=== PATIENT | male | born 1960 | race Hispanic/Latino ===

== ENCOUNTER → 2018-10-04 | Day surgery (SDC) | payer OTHER ==
[~2018-10-04] MED LIST: ASPIR 8181 MG PO; ATORVASTATIN CA40 MG PO; FENTANYL CITRATE/PF 100MCG/2 ML INJ ONE; MIDAZOLAM HCL 2 MG/2 ML VIAL ONE; PROPOFOL IV EMULSION 10 MG/ML 50 ML VIAL ONE
--- OUTSIDE RECORDS SUMMARY | 2018-10-04 07:02 | XMS REPORT | Summary of Care ---
Author Author [facility] Organization [facility] Address Unknown Phone Unavailable Encounter LUCIANA Wilkinson(MANUEL) [id number] Date(s): 07/30/15 - 07/30/15 [facility] [address] [place] [address]- Discharge Disposition: Home Attending Physician: Bernie Ross MD Vital Signs 1 2 3 Most recent to oldest [Reference Range]: 167.64 cm (07/30/15 11:06 AM) 167.64 cm (07/30/15 6:58 AM) Height 98.1 DegF (07/30/15 4:00 PM) 97.9 DegF (07/30/15 11:09 AM) 97.8 DegF (07/30/15 10:31 AM) Temperature Oral [96.4-99.1 DegF] 118/75 mmHg (07/30/15 4:00 PM) 122/81 mmHg (07/30/15 11:09 AM) 119/83 mmHg (07/30/15 10:31 AM) Blood Pressure [90-140/60-90 mmHg] 19 BRMIN (07/30/15 4:00 PM) 18 BRMIN (07/30/15 11:09 AM) 18 BRMIN (07/30/15 10:31 AM) Respiratory Rate [14-20 BRMIN] 66 bpm (07/30/15 4:00 PM) 65 bpm (07/30/15 11:09 AM) 64 bpm (07/30/15 10:31 AM) Peripheral Pulse Rate [60-100 bpm] 74.455 kg (07/30/15 11:06 AM) 68.182 kg (07/30/15 6:58 AM) Weight 26.49 m2 (07/30/15 11:06 AM) 24.26 m2 (07/30/15 6:58 AM) Body Mass Index Problem List Condition Effective Dates Status Health Status Informant Hyperlipidemia(Confi Active rmed) Allergies, Adverse Reactions, Alerts Substance Reaction Severity Status nka Active NKDA Active Medications aspirin 81 mg tablet, chewable 324 mg, 4 tab, Route: PO, Drug form: CHEWTAB, ONCE, Dosing Weight 68.182, kg, Pr iority: STAT, Start date: 07/30/15 7:15:00, Stop date: 07/30/15 7:15:00 Notes: Take with food. Start Date: 07/30/15 Stop Date: 07/30/15 Status: Completed aspirin 81 mg tablet, enteric coated 81 mg, 1 tab, Route: PO, Drug form: ECTAB, Daily, Dosing Weight 68.182, kg, Star t date: 07/31/15 9:00:00, Duration: 30 day, Stop date: 08/29/15 9:00:00 Notes: Do not crush or chew.(Same As: Ecotrin) Start Date: 07/31/15 Stop Date: 07/30/15 Status: Canceled aspirin 81 mg tablet, enteric coated 81 mg=1 tab, PO, Daily, # 30 tab, 0 Refill(s) Start Date: 07/30/15 Stop Date: 08/29/15 Status: Ordered Ativan 1 mg, 2 tab, Route: PO, Drug form: TAB, TID, Dosing Weight 74.455, kg, PRN Anxie ty, Start date: 07/30/15 12:17:00, Duration: 30 day, Stop date: 08/29/15 12:16:0 0 Notes: (Same as: Ativan) Start Date: 07/30/15 Stop Date: 07/30/15 Status: Discontinued atorvastatin 40 mg oral tablet 40 mg=1 tab, PO, Bedtime, # 30 tab, 0 Refill(s) Start Date: 07/30/15 Stop Date: 08/29/15 Status: Ordered diphenhydrAMINE 25 mg, 1 cap, Route: PO, Drug form: CAP, Bedtime, Dosing Weight 68.182, kg, PRN Insomnia, Start date: 07/30/15 10:01:00, Duration: 30 day, Stop date: 08/29/15 1 0:00:00 Notes: (Same as: Benadryl) Start Date: 07/30/15 Stop Date: 07/30/15 Status: Discontinued Lipitor 40 mg, 1 tab, Route: PO, Drug form: TAB, Bedtime, Dosing Weight 68.182, kg, Star t date: 07/30/15 21:00:00, Duration: 30 day, Stop date: 08/28/15 21:00:00 Notes: (Same as: Lipitor) Start Date: 07/30/15 Stop Date: 07/30/15 Status: Canceled Lipitor 40 mg, Route: PO, Drug form: TAB, Bedtime, Dosing Weight 74.455, kg, Start date: 07/30/15 21:00:00, Duration: 30 day, Stop date: 08/28/15 21:00:00 Start Date: 07/30/15 Stop Date: 07/30/15 Status: Deleted metoprolol tartrate 25 mg, 1 tab, Route: PO, Drug form: TAB, Q6H, Dosing Weight 68.182, kg, Start da te: 07/30/15 12:00:00, Duration: 30 day, Stop date: 08/29/15 6:00:00 Notes: (Same as: Lopressor) Start Date: 07/30/15 Stop Date: 07/30/15 Status: Discontinued morphine Sulfate 2 mg, 1 mL, Route: IVP, Drug form: INJ, Q15Min, Dosing Weight 68.182, kg, PRN Ch est Pain, Start date: 07/30/15 10:01:00, Duration: 2 doses or times, Stop date: Limited # of times Notes: (Same as:MORPhine Sulfate) Start Date: 07/30/15 Stop Date: 07/30/15 Status: Discontinued nitroglycerin SL Tab 0.4 mg, 1 tab, Route: SL, Drug form: TAB, Q5Min, Dosing Weight 68.182, kg, PRN C hest Pain, Start date: 07/30/15 10:01:00, Duration: 3 doses or times, Stop date: Limited # of times Notes: (Same as:Nitroquick, Nitrostat)"Do Not Crush" Sublingual tablet Start Date: 07/30/15 Stop Date: 07/30/15 Status: Discontinued ondansetron 4 mg, 1 tab, Route: PO, Drug form: TAB, Q8H, Dosing Weight 68.182, kg, PRN Nause a & Vomiting, Start date: 07/30/15 10:01:00, Duration: 30 day, Stop date: 08/29/15 10:00:00 Notes: (Same as: Zofran) Start Date: 07/30/15 Stop Date: 07/30/15 Status: Discontinued Saline Flush 0.9% 10 mL, Route: IVP, Drug Form: INJ, Dosing Weight 68.182, kg, PRN, PRN Line Flush , Start date: 07/30/15 7:15:00, Duration: 30 day, Stop date: 08/29/15 7:14:00 Notes: (Same as: BD Posiflush) Start Date: 07/30/15 Stop Date: 07/30/15 Status: Discontinued Saline Flush 0.9% 10 ml, Route: IVP, Drug Form: INJ, Dosing Weight 68.182, kg, Q12H, Start date: 09/29/14 21:00:00, Duration: 30 day, Stop date: 08/29/15 9:00:00 Notes: (Same as: BD Posiflush) Start Date: 07/30/15 Stop Date: 07/30/15 Status: Canceled Saline Flush 0.9% 10 ml, Route: IVP, Drug Form: INJ, Dosing Weight 68.182, kg, PRN, PRN Line Flush , Start date: 07/30/15 10:01:00, Duration: 30 day, Stop date: 08/29/15 10:00:00 Notes: (Same as: BD Posiflush) Start Date: 07/30/15 Stop Date: 07/30/15 Status: Discontinued Results ELECTROLYTES Most recent to 1 2 oldest [Reference Range]: Sodium Lvl [135-145 137 mEq/L mEq/L] (07/30/15 7:27 AM) Potassium Lvl 4.2 mEq/L [3.5-5.1 mEq/L] (07/30/15 7:27 AM) Chloride Lvl [95-109 103 mEq/L mEq/L] (07/30/15 7:27 AM) CO2 [24-32 mEq/L] 29 mEq/L (07/30/15 7:27 AM) AGAP [10.0-20.0 9.2 mEq/L mEq/L] *LOW* (07/30/15 7:27 AM) CHEM PANEL Most recent to 1 2 oldest [Reference Range]: Creatinine Lvl 0.8 mg/dL [0.5-1.4 mg/dL] (07/30/15 7:27 AM) eGFR 102 mL/min/1.73m2 1 *NA* (07/30/15 7: AM) BUN [7-22 mg/dL] 12 mg/dL (07/30/15 7:27 AM) B/C Ratio [6-25] 15 (07/30/15 7:27 AM) Glucose Lvl [70-99 125 mg/dL mg/dL] *HI* (07/30/15 AM) Total Protein 8.1 g/dL [6.4-8.4 g/dL] (07/30/15 7:27 AM) Albumin Lvl [3.5-5.0 4.0 g/dL g/dL] (07/30/15 7: AM) Globulin [2.0-4.0 4.1 g/dL g/dL] *HI* (07/30/15 7:27 AM) A/G Ratio [0.7-1.6] 1.0 (07/30/15: AM) Calcium Lvl 8.9 mg/dL [8.5-10.5 mg/dL] (07/30/15 7:27 AM) Phosphorus [2.5-4.5 2.5 mg/dL mg/dL] (07/30/15 7:27 AM) Magnesium Lvl 2.0 mg/dL [1.8-2.4 mg/dL] (07/30/15 7:27 AM) ALT [0-65 unit/L] 39 unit/L (07/30/15 7:27 AM) AST [0-37 unit/L] 21 unit/L (07/30/15 7:27 AM) Alk Phos [39-136 111 unit/L unit/L] (07/30/15 7:27 AM) Bili Total [0.2-1.3 0.8 mg/dL mg/dL] (07/30/15 7:27 AM) 1Result Comment: The eGFR is calculated using the CKD-EPI formula. In most young, healthy individuals the eGFR will be >90 mL/min/1.73m2. The eGFR declines with age. An eGFR of 60-89 may be normal in some populations, particularly the elderly, for whom the CKD-EPI formula has not been extensively validated. Use of the eGFR is not recommended in the following populations: Individuals with unstable creatinine concentrations, including patients and those with serious co-morbid conditions. Patients with extremes in muscle mass or diet. The data above are obtained from the National Kidney Disease Education Program ( NKDEP) which additionally recommends that when the eGFR is used in patients with extremes of body mass index for purposes of drug dosing, the eGFR should be mul tiplied by the estimated BMI. CARDIAC ENZYMES Most recent to 1 2 oldest [Reference Range]: Total CK [12-191 161 unit/L 201 unit/L unit/L] (07/30/15 10:45 AM) *HI* (07/30/15 7:27 AM) CK MB [0.5-3.6 3.2 ng/mL 2.8 ng/mL ng/mL] (07/30/15 10:45 AM) (07/30/15 7:27 AM) CK MB Index 1.4 [0.0-2.5] (07/30/15: AM) Troponin-I 0.19 ng/mL <0.02 ng/mL [0.00-0.40 ng/mL] (07/30/15 10:45 AM) (07/30/15 7:27 AM) HEMATOLOGY Most recent to 1 2 oldest [Reference Range]: WBC [3.7-10.4 K/CMM] 7.8 K/CMM (07/30/15 7:27 AM) RBC [4.70-6.10 5.32 M/CMM M/CMM] (07/30/15 7:27 AM) Hgb [14.0-18.0 g/dL] 15.9 g/dL (07/30/15 7:27 AM) Hct [42.0-54.0 %] 50.1 % (07/30/15 7:27 AM) MCV [80.0-94.0 fL] 94.2 fL *HI* (07/30/15 7:27 AM) MCH [27.0-31.0 pg] 29.9 pg (07/30/15:27 AM) MCHC [32.0-36.0 31.8 g/dL g/dL] *LOW* (07/30/15 AM) RDW [11.5-14.5 %] 12.9 % (07/30/15: AM) Platelet [133-450 218 K/CMM K/CMM] (07/30/15 AM) MPV [7.4-10.4 fL] 9.7 fL (07/30/15 AM) Segs [45.0-75.0 %] 50.1 % (07/30/15: AM) Lymphocytes 36.3 % [20.0-40.0 %] (07/30/15 AM) Monocytes [2.0-12.0 9.3 % %] (07/30/15: AM) Eosinophils [0.0-4.0 2.9 % %] (07/30/15: AM) Basophils [0.0-1.0 1.4 % %] *HI* (07/30/15 AM) Segs-Bands # 3.9 K/CMM [1.5-8.1 K/CMM] (07/30/15:27 AM) Lymphocytes # 2.8 K/CMM [1.0-5.5 K/CMM] (07/30/15:27 AM) Monocytes # [0.0-0.8 0.7 K/CMM K/CMM] (07/30/15:27 AM) Eosinophils # 0.2 K/CMM [0.0-0.5 K/CMM] (07/30/15 7:27 AM) Basophils # [0.0-0.2 0.1 K/CMM K/CMM] (07/30/15:27 AM) PT [12.0-14.7 12.1 seconds seconds] (07/30/15 7:27 AM) INR [0.85-1.17] 0.87 (07/30/15:27 AM) PTT [22.9-35.8 26.8 seconds seconds] (07/30/15 7:27 AM) Immunizations Vaccine Date Refusal Reason pneumococcal 23-valent vaccine 01/04/08 Procedures Procedure Date Related Diagnosis Body Site Stent placement Social History Social History Type Response Substance Abuse Use: None. Alcohol Current, Type Beer, Wine, Liquor. Frequency: Daily. 3 Drinks/Episode average. Last use: yesterday. Previous treatment: None. Smoking Status Never smoker; Exposure to Tobacco Smoke None; Cigarette Smoking Last 365 Days No; Reg Smoking Cessation Counseling No Assessment and Plan Extracted from: Title: Discharge Summary * Author: Lupillo Tamayo MD Date: 07/31/15 Discharge Information Date Admitted-07/30 Date Discharged- 07/31/2015 Admitting Physician- Vandana Discharging Physician- Dr Tamayo Consulting Physicians- Lizy Admitting Diagnosis- Chest Pain Discharging Diagnosis- Atyical Chest pain with a hx of CAD Dylipidemia HTN controlled Procedures- Disposition- home Discharge Condition - fair Discharge Medications- see discharge medication reconcitilation sheet Discharge Instructions / Follow up- Follow up with PCP in 1 week Discharge Exam: Lungs clear Heart ; S1 and S2 Abd : soft , non tender Time in Discharge Process- 32 minutes Discharge Plan Discharge Summary Plan Discharge Status: improved. Discharge instructions given: to patient. Discharge disposition: discharge to home. Prescriptions: written and given to patient. Extracted from: Title: Cardiology Author: Prasanna Medel MD Date: 07/30/15 INTERVENTIONAL CARDIOLOGY CONSULT BAILEE MEDEL MD, PHD, [facility], [facility] PHONE: [phone] FAX:[phone] Attending: Bernie Ross MDPhone: Service: Internal Medicine Code status: None Specified=FULL CODE Reason for Admission: CHEST PAIN Working DRG: None Documented Isolation: None Documented Consulting Physicians: Bernie Ross MDOffice: MSO: [id number]: Family Practice Prasanna Medel MDOffice: MSO: [id number]: Cardiology RFC: chest pain HPI: 55 yo M with relevant cardiovascular PMH of CAD, PTCA with IRENE - Cypher, GI bleed and further as listed in details below who presented to hospital with chest pain Pt experienced chest pain this morning when getting ready to work. pressure mid-left sided, radiating to arm and L jaw. Pain lasted approx. 30-45 min , mild intensity. Pt took 2 baby asa and pain slowly resolved. Associated with mild SOB. No cough,m no fever. Last episode of similar pain was ~ 10y ago prior to angioplasty. Since then pt was on meds. for approx. 5-6 years and then stopped due to lack of insurance coverage. Occasionally takes ASA 81mg. Works in [employer] what involves heavy lifting. Quit smoking 2y ago. REVIEW OF SYSTEMS: Constitutional: no fever, no chills HEENT: no blurry vision, no recent hearing changes, no dysphagia Respiratory: no cough, no hemoptysis, remaining as above Cardiovascular: as per HPI Gastrointestinal: no constipation, no diarrhea, no blood in the stool, Genitourinary: no blood in the urine, no pain with urination Skin: no hives, no itching Extremities: as per HPI Neurologic: no seizures, no recent speech / vision problems Rubén/Lymph: no easy bruising, no frequent infections Endocrine: no polyuria, no polydypsia Psychiatric: denies depression, no anxiety PHYSICAL EXAM: General: no acute distress, resting comfortably HEENT: atraumatic, anicteric sclerae, oral mucosa moist Neck: supple, Cardiovascular:RRR, no murmurs , carotid upstrokes brisk Lungs: normal resp. effort,CTAB Abdomen: soft, non-distended, no guarding, +BS Extremities: no clubbing, Skin: warm, no jaundice, Psych: AOx3, coherent, mood appropriate Neurologic: no focal deficits, moving all extremities Vitals and Temp: VitalsTmp(F)[id number] 07/30 11:[id number]/8118------ 07/30 10:[id number]--- 07/30 09:[id number]/005379--- 07/30 08:56----[id number]--- 07/30 06:[id number]--- 24 Hr Tmax: 98.2F (36.78c) at 07/30 09:42Vital Signs are the last 5 in the past 48 hours. DateWt(kg)Wt(lb)Ht(cm)Ht(in)Method 07/30 (initial) 68.18 [id number] 66.00Estimated Allergies: NKDA, nka FAMILY HISTORY: Mother: Type 2 diabetes mellitus PAST MEDICAL HISTORY: Hyperlipidemia CAD Stent placement Active Problems (1) Hyperlipidemia SOCIAL HISTORY: Alcohol Details: Current, Type Beer, Wine, Liquor. Frequency: Daily. 3 Drinks/Episode average. Last use: yesterday. Previous treatment: None. Tobacco Details: Use: Never smoker. Tobacco smoke exposure: None. Did the Patient Smoke Cigarettes Anytime During the Last 365 Days? No. Cessation Counseling Provided? No. Substance Abuse Details: Use: None. CURRENT MEDS: Medications (11) Active Scheduled Meds (4): 07/31/15 aspirin (aspirin 81 mg tablet, enteric coated) 81 mg PO Daily 07/30/15 atorvastatin (Lipitor) 40 mg PO Bedtime 07/30/15 metoprolol (metoprolol tartrate) 25 mg PO Q6H 07/30/15 sodium chloride (Saline Flush 0.9%) 10 ml IVP Q12H Unscheduled Meds: None PRN Meds (6): 07/30/15 diphenhydrAMINE 25 mg PO Bedtime 07/30/15 morphine Sulfate 2 mg IVP Q15Min 07/30/15 nitroglycerin (nitroglycerin SL Tab) 0.4 mg SL Q5Min 07/30/15 ondansetron 4 mg PO Q8H 07/30/15 sodium chloride (Saline Flush 0.9%) 10 mL IVP PRN 07/30/15 sodium chloride (Saline Flush 0.9%) 10 ml IVP PRN One Time Meds (1): 07/30/15 (Completed) aspirin (aspirin 81 mg tablet, chewable) 324 mg PO ONCE Continuous Infusions: None LABS: reviewed. Labs (Last four charted values) WBC 7.8(JUL 30) Hgb 15.9(JUL 30) Hct 50.1(JUL 30) Plt 218(JUL 30) Na 137(JUL 30) K 4.2(JUL 30) CO2 29(JUL 30) Cl 103(JUL 30) Cr 0.8(JUL 30) BUN 12(JUL 30) Glucose Random H 125(JUL 30) Mg 2.0(JUL 30) Phos 2.5(JUL 30) Ca 8.9(JUL 30) PT 12.1(JUL 30) INR 0.87(JUL 30) PTT 26.8(JUL 30) Troponin 0.19(JUL 30)<0.02(JUL 30) CK MB 3.2(JUL 30)2.8(JUL 30) Total CK 161(JUL 30)H 201(JUL 30) DIAGNOSTIC TESTS: TELEMETRY:no events. ECG: SR. LVH. Bradycardia. no ischemia. ECHO:none ASSESSMENT and PLAN: 55 yo patient with relevant cardiovascular PMH of CAD, PTCRCVA with 3 cypher stents, GI bleed - remote who presented to hospital with chest pain. Chest pain. susp. unstable angina. no ECG changes \\ BP controlled. cardiac markers neg. x 2 BRANDON risk ~ 2 COnt. ASA 81 mg Start statin : optimally pt should be on high potency : atorvast. 40 mg will proceed with stress test for further risk stratification Addendum 2005: PTCA LAD and RCA by Lizy, 3.5 x 18-mm CYPHER stent into the proximal portion of the left anterior descending lesion Prasanna 3.5 x 13 mm CYPHER into the distal portion of the lesion. John post dilated the distal stent up to 3.6-mm in diameter, on post dilated the overlap of the stent up to 3.7 mm 07/30/2015 proximal CYPHER stent up to 3.75-mm in diameter. 12:23 2.5 x 28-mm CYPHER in the RCA Addendum Stress test: by Lizy, overall positive chest pain and jaw pain during exercise. Prasanna Patient with excellent exercise capactity : 12.[address] changes at peak exercise with John quick resolution at recovery. MD on No evidence of significant wall motion abn. LV cavity decreases in size during exercise. 07/30/2015 Low risk stress test. 16:20 D/c meds: (pt without insurance, pls. prescribe meds. on 4$ list) ASA 81 mg daily Pravastatin 80 mg daily Metoprolol 25 mg BID Imdur 30 mg QD Follow up with me in 2 weeks.
--- OUTSIDE RECORDS SUMMARY | 2018-10-04 07:02 | XMS REPORT | Summary of Care ---
Author Author Yumiko Gannon Organization Unknown Address [facility] Phone Unavailable Care Team Providers Care Electrical Accessories Assembler Name Role Phone Yumiko Gannon Unavailable Unavailable PEPE DESHPANDE Unavailable Unavailable SHAY WALTON MAPEPE Unavailable Unavailable ALMAZ PORTER MA, PAUL Silva Unavailable Unavailable Unavailable Unavailable Functional Status Name Dates Details Functional status health issues are not documented Status: Name Dates Details Cognitive status health issues are not documented Status: Problems Name Dates Details Coronary artery disease involving mentasta coronary artery of mentasta heart without angina pectoris (414.01, I25.10) Status: Active BMI 26.0-26.9,adult (V85.22, Z68.26) Status: Active Mixed hyperlipidemia (272.2, E78.2) Status: Active Colon cancer screening (V76.51, Z12.11) Status: Active Medications Name Dates Details Aspirin 81 MG TABS Active Nitroglycerin 0.4 MG Sublingual Tablet Sublingual DISSOLVE 1 TABLET UNDER THE TONGUE NEEDED FOR CHEST PAIN * Quantity: 25 Refills: 0 PEPE DESHPANDE * Start : 15-Jun-2018 Active Atorvastatin Calcium 40 MG Oral Tablet TAKE 1 TABLET AT BEDTIME. * Quantity: 90 Refills: 0 PEPE DESHPANDE * Start : 16-Jun-2018 Active Allergies and Adverse Reactions Name Dates Details No Known Drug Allergies (Allergy) Status: Active Procedures Procedure Dates Details History of Cath Stent Placement Completed Immunization Name Dates Details Flublok Quadrivalent 0.5 ML Intramuscular Solution Prefilled Syringe Not Administered Td (adult), unspecified formulation on: Sep-2015 Pneumovax 23 25 MCG/0.5ML Injection Injectable Lot #: [id number] on: 15-Jun-2018 Family History Name Dates Details Family history of diabetes mellitus (V18.0, Z83.3) Status: Active Social History Name Dates Details - Status: Name Dates Details Former smoker Vital Signs Date Test Result Details No Known Vitals to report Results Date Description Value Details Results not documented Plan of Care Name Dates Details Planned Observations Planned Goals not documented Interventions Provided Follow-ups/Referrals* Cardiology Referral; To Be Done: 18 Jul 2018 * Gastroenterology Referral; To Be Done: 18 Jul 2018 Instructions Name Dates Details Instructions not documented Encounters Appointment; PEPE DAY P.A. Encounter Diagnosis: Problem not documented On: 15-Jun-2018 10:00
--- OUTSIDE RECORDS SUMMARY | 2018-10-04 07:02 | XMS REPORT | Continuity of Care Document ---
Author Author [facility] Interface Address Unknown Phone Unavailable Problems Problem Status Onset Date Classification Date Reported Comments Source CHEST PAIN Active 07/30/2015 [facility] Hyperlipidemia Active Problem 08/02/2015 [facility] Medications Medication Details Route Status Patient Instructions Ordering Provider Order Date Source Aspirin 81 MG Enteric Coated Tablet 81 mg, 1 tab, Route: PO, Drug form: ECTAB, Daily, Dosing Weight 68.182, kg, Start date: 07/31/15 9:00:00, Duration: 30 day, Stop date: 08/29/15 9:00:00Notes: Do not crush or chew. (Same As: Ecotrin) No Longer Active 07/31/2015 [facility] Lipitor 40 mg, 1 tab, Route: PO, Drug form: TAB, Bedtime, Dosing Weight 68.182, kg, Start date: 07/30/15 21:00:00, Duration: 30 day, Stop date: 08/28/15 21:00:00Notes: (Same as: Lipitor) Inactive 07/31/2015 [facility] Saline Flush 0.9% 10 ml, Route: IVP, Drug Form: INJ, Dosing Weight 68.182, kg, Q12H, Start date: 07/30/15 21:00:00, Duration: 30 day, Stop date: 08/29/15 9:00:00Notes: (Same as: BD Posiflush) Inactive 07/31/2015 [facility] Aspirin 81 MG Enteric Coated Tablet 81 mg=1 tab, PO, Daily, # 30 tab, 0 Refill(s) Active 07/31/2015 [facility] atorvastatin 40 mg oral tablet 40 mg=1 tab, PO, Bedtime, # 30 tab, 0 Refill(s) Active 07/31/2015 [facility] Ativan 1 mg, 2 tab, Route: PO, Drug form: TAB, TID, Dosing Weight 74.455, kg, PRN Anxiety, Start date: 07/30/15 12:17:00, Duration: 30 day, Stop date: 08/29/15 12:16:00Notes: (Same as: Ativan) Inactive 07/30/2015 [facility] metoprolol tartrate 25 mg, 1 tab, Route: PO, Drug form: TAB, Q6H, Dosing Weight 68.182, kg, Start date: 07/30/15 12:00:00, Duration: 30 day, Stop date: 08/29/15 6:00:00Notes: (Same as: Lopressor) Inactive 07/30/2015 [facility] Saline Flush 0.9% 10 ml, Route: IVP, Drug Form: INJ, Dosing Weight 68.182, kg, PRN, PRN Line Flush, Start date: 07/30/15 10:01:00, Duration: 30 day, Stop date: 08/29/15 10:00:00Notes: (Same as: BD Posiflush) Inactive 07/30/2015 [facility] Morphine 2 mg, 1 mL, Route: IVP, Drug form: INJ, Q15Min, Dosing Weight 68.182, kg, PRN Chest Pain, Start date: 07/30/15 10:01:00, Duration: 2 doses or times, Stop date: Limited # of timesNotes: (Same as:MORPh ine Sulfate) Inactive 07/30/2015 [facility] Nitroglycerin 0.4 mg, 1 tab, Route: SL, Drug form: TAB, Q5Min, Dosing Weight 68.182, kg, PRN Chest Pain, Start date: 07/30/15 10:01:00, Duration: 3 doses or times, Stop date: Limited # of timesNotes: (Same as:Nitroqu ick, Nitrostat) "Do Not Crush" Sublingual tablet Inactive 07/30/2015 [facility] Diphenhydramine 25 mg, 1 cap, Route: PO, Drug form: CAP, Bedtime, Dosing Weight 68.182, kg, PRN Insomnia, Start date: 07/30/15 10:01:00, Duration: 30 day, Stop date: 08/29/15 10:00:00Notes: (Same as: Benadryl) Inactive 07/30/2015 [facility] Ondansetron 4 mg, 1 tab, Route: PO, Drug form: TAB, Q8H, Dosing Weight 68.182, kg, PRN Nausea & Vomiting, Start date: 07/30/15 10:01:00, Duration: 30 day, Stop date: 08/29/15 10:00:00Notes: (Same as: Zofran) Inactive 07/30/2015 [facility] Aspirin 81 MG Chewable Tablet 324 mg, 4 tab, Route: PO, Drug form: CHEWTAB, ONCE, Dosing Weight 68.182, kg, Priority: STAT, Start date: 07/30/15 7:15:00, Stop date: 07/30/15 7:15:00Notes: Take with food. Inactive 07/30/2015 [facility] Saline Flush 0.9% 10 mL, Route: IVP, Drug Form: INJ, Dosing Weight 68.182, kg, PRN, PRN Line Flush, Start date: 07/30/15 7:15:00, Duration: 30 day, Stop date: 08/29/15 7:14:00Notes: (Same as: BD Posiflush) Inactive 07/30/2015 [facility] Allergies, Adverse Reactions, Alerts Substance Category Reaction Severity Reaction type Status Date Reported Comments Source nka Assertion Drug allergy Active [facility] Immunizations Immunization Date Given Site Status Last Updated Comments Source pneumococcal 23-valent vaccine 01/04/2008 Left Arm completed Yaron [facility] Results Order Name Results Value Reference Range Date Interpretation Comments Source CARDIAC ENZYMES Troponin-I 0.19 ng/mL 0.00 - 0.40 07/30/2015 [facility] CARDIAC ENZYMES CK MB 3.2 ng/mL 0.5 - 3.6 07/30/2015 [facility] CARDIAC ENZYMES Total CK 161 unit/L 12 - 191 07/30/2015 [facility] CARDIAC ENZYMES Troponin-I null 0.00 - 0.40 07/30/2015 [facility] CARDIAC ENZYMES Total CK 201 unit/L 12 - 191 07/30/2015 [facility] CARDIAC ENZYMES CK MB 2.8 ng/mL 0.5 - 3.6 07/30/2015 [facility] CARDIAC ENZYMES CK MB Index 1.4 0.0 - 2.5 07/30/2015 [facility] CHEM PANEL Magnesium Lvl 2.0 mg/dL 1.8 - 2.4 07/30/2015 [facility] CHEM PANEL Phosphorus 2.5 mg/dL 2.5 - 4.5 07/30/2015 [facility] CHEM PANEL A/G Ratio 1.0 0.7 - 1.6 07/30/2015 [facility] CHEM PANEL AGAP 9.2 meq/L 10.0 - 20.0 07/30/2015 [facility] CHEM PANEL B/C Ratio 15 6 - 25 07/30/2015 [facility] CHEM PANEL Globulin 4.1 g/dL 2.0 - 4.0 07/30/2015 [facility] CHEM PANEL BUN 12 mg/dL 7 - 22 07/30/2015 [facility] CHEM PANEL Glucose Lvl 125 mg/dL 70 - 99 07/30/2015 [facility] CHEM PANEL Sodium Lvl 137 meq/L 135 - 145 07/30/2015 [facility] CHEM PANEL Potassium Lvl 4.2 meq/L 3.5 - 5.1 07/30/2015 [facility] CHEM PANEL Creatinine Lvl 0.8 mg/dL 0.5 - 1.4 07/30/2015 [facility] CHEM PANEL Alk Phos 111 unit/L 39 - 136 07/30/2015 [facility] CHEM PANEL Bili Total 0.8 mg/dL 0.2 - 1.3 07/30/2015 [facility] CHEM PANEL CO2 29 meq/L 24 - 32 07/30/2015 [facility] CHEM PANEL Calcium Lvl 8.9 mg/dL 8.5 - 10.5 07/30/2015 [facility] CHEM PANEL Chloride Lvl 103 meq/L 95 - 109 07/30/2015 [facility] CHEM PANEL ALT 39 unit/L 0 - 65 07/30/2015 [facility] CHEM PANEL Albumin Lvl 4.0 g/dL 3.5 - 5.0 07/30/2015 [facility] CHEM PANEL AST 21 unit/L 0 - 37 07/30/2015 [facility] CHEM PANEL Total Protein 8.1 g/dL 6.4 - 8.4 07/30/2015 [facility] CHEM PANEL eGFR 102 mL/min/1.73m2 07/30/2015 Result Comment: The eGFR is calculated using the [...] from the National Kidney Disease Education Program (NKDEP) which additionally recommends that when the eGFR is used in patients with extremes of body mass index for purposes of drug dosing, the eGFR should be multiplied by the estimated BMI. [facility] HEMATOLOGY Segs 50.1 % 45.0 - 75.0 07/30/2015 [facility] Monocytes 9.3 % 2.0 - 12.0 07/30/2015 [facility] Lymphocytes 36.3 % 20.0 - 40.0 07/30/2015 [facility] HEMATOLOGY Eosinophils 2.9 % 0.0 - 4.0 07/30/2015 [facility] Basophils 1.4 % 0.0 - 1.0 07/30/2015 [facility] Segs-Bands # 3.9 K/CMM 1.5 - 8.1 07/30/2015 [facility] Lymphocytes # 2.8 K/CMM 1.0 - 5.5 07/30/2015 [facility] Basophils # 0.1 K/CMM 0.0 - 0.2 07/30/2015 [facility] Eosinophils # 0.2 K/CMM 0.0 - 0.5 07/30/2015 [facility] Monocytes # 0.7 K/CMM 0.0 - 0.8 07/30/2015 [facility] INR 0.87 0.85 - 1.17 07/30/2015 [facility] PT 12.1 s 12.0 - 14.7 07/30/2015 [facility] PTT 26.8 s 22.9 - 35.8 07/30/2015 [facility] Hgb 15.9 g/dL 14.0 - 18.0 07/30/2015 [facility] RBC 5.32 M/CMM 4.70 - 6.10 07/30/2015 [facility] WBC 7.8 K/CMM 3.7 - 10.4 07/30/2015 [facility] MCH 29.9 pg 27.0 - 31.0 07/30/2015 [facility] MCV 94.2 fL 80.0 - 94.0 07/30/2015 [facility] MCHC 31.8 g/dL 32.0 - 36.0 07/30/2015 [facility] Hct 50.1 % 42.0 - 54.0 07/30/2015 [facility] MPV 9.7 fL 7.4 - 10.4 07/30/2015 [facility] HEMATOLOGY Platelet 218 K/CMM 133 - 450 07/30/2015 [facility] HEMATOLOGY RDW 12.9 % 11.5 - 14.5 07/30/2015 [facility] Chest 1view DX Chest 1view DX PROCEDURE: Chest 1view REASON FOR EXAM: See Clinic Indication CLINICAL INDICATION: Chest pain COMPARISON: None. FINDINGS: No acute process. No focal consolidation, pleural effusion, or pneumothorax. Normal cardiac silhouette and mediastinum. Tortuous thoracic aorta. SL: 12 07/30/2015 - - Read by: Bob Kolb MD Dictated Date/time: 07/30/15 07:40 Electronically Signed by: Bob Kolb MD 07/30/15 07:41 FINAL REPORT [facility] Vital Signs Vital Sign Value Date Comments Source Respitory Rate 19 07/30/2015 [facility] Heart Rate 66 07/30/2015 [facility] Systolic (mm Hg) 118 07/30/2015 [facility] Diastolic (mm Hg) 75 07/30/2015 [facility] Temperature Oral (F) 98.1 F 07/30/2015 [facility] Respitory Rate 18 07/30/2015 [facility] Systolic (mm Hg) 122 07/30/2015 [facility] Diastolic (mm Hg) 81 07/30/2015 [facility] Heart Rate 65 07/30/2015 [facility] Temperature Oral (F) 97.9 F 07/30/2015 [facility] Height 167.64 cm 07/30/2015 [facility] BMI Calculated 26.49 07/30/2015 [facility] Weight 74.455 07/30/2015 [facility] Temperature Oral (F) 97.8 F 07/30/2015 [facility] Heart Rate 64 07/30/2015 [facility] Respitory Rate 18 07/30/2015 [facility] Systolic (mm Hg) 119 07/30/2015 [facility] Diastolic (mm Hg) 83 07/30/2015 [facility] Weight 68.182 07/30/2015 [facility] BMI Calculated 24.26 07/30/2015 [facility] Height 167.64 cm 07/30/2015 [facility] Encounters Location Location Details Encounter Type Encounter Number Reason For Visit Attending Provider ADM Date DC Date Status Source [facility] OBS Observation Patient [id number] Bernie Ross 07/30/2015 07/31/2015 [facility] Outpatient [id number] LEIF BACON 2016 Active [facility] Outpatient [id number] LEIF BACON 03/04/2016 Active [facility] Outpatient [id number] LEIF BACON 09/03/2016 Active [facility] Procedures Procedure Code Date Perfomer Comments Source Stent placement [id number] [facility]
[2018-10-04 10:20] VITALS: BP 115/90
== END | disposition home or self-care (01) ==
LOC: OR 06:59
PROVIDERS: ATTEND Internal Medicine Gastroenterology
DX: Z12.11 Encounter for screening for malignant neoplasm of colon (principal); D12.2 Benign neoplasm of ascending colon; K29.50 Unspecified chronic gastritis without bleeding; K21.0 Gastro-esophageal reflux disease with esophagitis; K31.89 Other diseases of stomach and duodenum; K44.9 Diaphragmatic hernia without obstruction or gangrene; K57.10 Diverticulosis of small intestine without perforation or abscess without bleeding; K62.89 Other specified diseases of anus and rectum; K64.8 Other hemorrhoids; I25.10 Atherosclerotic heart disease of native coronary artery without angina pectoris; E78.5 Hyperlipidemia, unspecified; R00.1 Bradycardia, unspecified; Z01.810 Encounter for preprocedural cardiovascular examination; Z79.82 Long term (current) use of aspirin; Z95.5 Presence of coronary angioplasty implant and graft
CPT/HCPCS: 43239; 45380; 45384; 93005; J2250; 45378